=== PATIENT | female | born 1940 | race Caucasian/White ===

== ENCOUNTER → 2020-11-08 | Outpatient (CLI) | payer MEDICARE ==
--- NOTE | 2020-11-09 02:28 | RAD ---
EXAM: 3 views right knee DATE: 11/08/2020 3:41 PM INDICATION: RIGHT KNEE PAIN COMPARISON: No Prior FINDINGS: Mild medial compartment joint space narrowing with rightward osteophytes. Chondrocalcinosis. Patellar enthesopathy. No significant right knee joint effusion.No evidence of acute fracture or dislocation. IMPRESSION: 1. Degenerative changes of the medial compartment without evidence for acute fracture or dislocation . 2. No evidence of acute fracture or dislocation. Electronically signed by: Osman Neff MD (11/09/2020 2:26 AM) JOSE
== END ==
LOC: DXRAD 15:34
PROVIDERS: ATTEND Physician Assistant
DX: M17.11 Unilateral primary osteoarthritis, right knee (principal); M25.761 Osteophyte, right knee
CPT/HCPCS: 73562

== ENCOUNTER → 2021-08-21 | Outpatient (CLI) | payer MEDICARE, BC ==
--- NOTE | 2021-08-21 16:40 | RAD ---
EXAM: Thoracic spine, 3 views; lumbar spine, 3 views. HISTORY: Pain. COMPARISON: None. FINDINGS: Thoracic spine: 3 views of the thoracic spine are obtained. There is mild thoracic scoliosi s. There is a moderate right greater than left anterior wedge compression fracture with minimal retro pulsion of the cortex at T11. No additional fracture is seen. There is multilevel endplate remodeling and anterior spurring. There is also degenerative change involving the cervical spine, not formally assessed on this exam. Lumbar spine: 3 views of the lumbar spine are obtained. There is minimal lumbar scoliosis. There is 3 mm grade 1 anterolisthesis of L4 and L5 and L5 on S1. There is multilevel endplate remodeling and fa cet arthropathy. IMPRESSION: 1. Moderate wedge compression fracture of T11 with slight relative motion of the cortex. This is of u ncertain chronicity. Correlate for pain in this location. 2. 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 3. Mild lumbar scoliosis and mild listhesis at the lower lumbar levels. Electronically signed by: Hannah Cano MD (08/21/2021 4:38 PM) [id number]
== END ==
LOC: RAD 15:58
PROVIDERS: ATTEND Physician Assistant
DX: M41.85 Other forms of scoliosis, thoracolumbar region (principal); M43.17 Spondylolisthesis, lumbosacral region; M12.88 Other specific arthropathies, not elsewhere classified, other specified site; M48.54XA Collapsed vertebra, not elsewhere classified, thoracic region, initial encounter for fracture; M46.04 Spinal enthesopathy, thoracic region; M47.812 Spondylosis without myelopathy or radiculopathy, cervical region
CPT/HCPCS: 72072; 72100

== ENCOUNTER → 2022-02-02 | Outpatient (CLI) | payer MEDICARE, BC ==
--- NOTE | 2022-02-02 09:37 | RAD ---
3 VIEW STUDY OF THE RIGHT KNEE Clinical indications: Status post arthroplasty on January 22, 2022. Right knee pain FINDINGS: Total right knee arthroplasty is evident which is well aligned. Midline metallic skin sutur es are seen anteriorly. Small right knee joint effusion is seen. No acute fracture or lytic process i s seen. IMPRESSION: Total right knee arthroplasty. No acute osseous abnormality. Electronically signed by: Jackson Estrada MD (02/02/2022 9:34 AM) [id number]
== END ==
LOC: DXRAD 08:56
PROVIDERS: ATTEND Physician Assistant
DX: M25.461 Effusion, right knee (principal); Z96.651 Presence of right artificial knee joint
CPT/HCPCS: 73562